=== PATIENT | male | born 1975 | race Caucasian/White ===

== ENCOUNTER 2019-12-02 02:27 | Emergency (ER) | payer BC ==
--- NOTE | 2019-12-02 03:49 | EDM.PDOC ---
ED HPI GENERAL MEDICAL PROBLEM - General Chief Complaint: General Stated Complaint: CAN'T SLEEP Time Seen by Provider: 12/02/19 03:41 Source of Information: Reports: Patient History Limitations: Reports: No Limitations - History of Present Illness INITIAL COMMENTS - FREE TEXT/NARRATIVE: Patient presents describing an inability to sleep for almost 48 hours. For a variety of reasons he had difficulty sleeping beginning Tuesday. He tried a number of things to help him fall asleep, none of which were successful. He has tried Benadryl, physical activity, lying in bed and trying distraction but none of these measures have helped him. He, and his , described other times in the past where his had difficulty with sleeping related to work schedule etc. Nothing is ever lasted this long. He tried some Benadryl in the last day or so but with no relief. They are here visiting from out of town for another couple of days. Onset: Gradual Duration: Day(s): (2) Location: Reports: Generalized Severity: Moderate Improves with: Reports: None Worsens with: Reports: None Associated Symptoms: Reports: No Other Symptoms - Related Data Allergies Allergy/AdvReac Type Severity Reaction Status Date / Time No Known Allergies Allergy Verified 12/02/19 03:39 Home Meds: Home Meds NK [No Known Home Meds] 12/02/19 [History] ED ROS GENERAL - Review of Systems Review Of Systems: Comprehensive ROS is negative, except as noted in HPI. ED EXAM, GENERAL - Physical Exam Exam: See Below Exam Limited By: No Limitations General Appearance: Alert, No Apparent Distress Respiratory/Chest: No Respiratory Distress Cardiovascular: Regular Rate, Rhythm Neurological: Alert, Oriented, CN II-XII Intact, Other (He is concise and answering questions but is irritated by some of the questioning and recommendations.) Course - Vital Signs Last Recorded V/S: Last Vital Signs Temp 36.7 C 12/02/19 03:50 Pulse 75 12/02/19 03:50 Resp 19 12/02/19 03:50 BP 143/90 H 12/02/19 03:50 Pulse Ox 97 12/02/19 03:50 - Orders/Labs/Meds Meds: Medications Discontinued Medications Generic Name Dose Route Start Last Admin Trade Name Freq PRN Reason Stop Dose Admin Lorazepam 0.5 mg 12/02/19 04:16 12/02/19 04:24 Ativan PO 12/02/19 04:17 0.5 mg ONETIME ONE Administration - Re-Assessments/Exams Free Text/Narrative Re-Assessment/Exam: 12/02/19 06:33 Given that they have tried Benadryl, I do not think he would have any better luck with hydroxyzine. They were looking for something stronger which would help him fall asleep for a while this morning. A single oral dose of lorazepam 0.5 mg was administered in the department. His is here to drive him home. He was sent with a prescription for an additional 5 tablets of lorazepam 0.5 mg to be taken at bedtime. He should try not to sleep past 1000 or 1100 hrs. today as that will throw off his sleep cycle for tonight. He was discharged in stable condition to follow-up with primary care on return home. Departure - Departure Time of Disposition: 04:17 Disposition: Home, Self-Care 01 Clinical Impression: Insomnia Qualifiers: Insomnia type: other insomnia Qualified Code(s): G47.09 - Other insomnia - Discharge Information Instructions: Insomnia Referrals: PCP,None [Primary Care Provider] - Forms: ED Department Discharge Additional Instructions: After receiving your lorazepam sleep medication, go home and do just that. I would recommend getting up by 10:00 this morning however. Do not sleep until mid afternoon or your sleep cycle will be thrown off again. Avoid caffeine or chocolate after 6 PM. If you cannot fall asleep, get out of bed after 30 minutes and do things you do not enjoy doing. That will also help push you toward falling asleep again. Recheck with primary care once you get back home. Sepsis Event Note (ED) - Focused Exam Vital Signs: Vital Signs Temp Pulse Resp BP Pulse Ox 12/02/19 03:50 36.7 C 75 19 143/90 H 97 12/02/19 03:39 36.7 C 75 19 143/90 H 97
[2019-12-02] MEDS ORDERED: LORazepam 0.5 MG Tab PO ONE (04:16)
== END 2019-12-02 04:43 | disposition home or self-care (01) ==
LOC: JP.ED 02:27
DX: G47.09 Other insomnia (principal)
CPT/HCPCS: 99283; A9270